=== PATIENT | female | born 1965 | race Caucasian/White ===

== ENCOUNTER → 2024-06-27 | Outpatient (CLI) | payer SELFPAY ==
--- NOTE | 2024-06-27 16:45 | RAD_ITS ---
PROCEDURE: CERV SPINE 4 OR 5 VIEWS REASON FOR EXAM: Segmental and somatic dysfunction of the cervical spine. TECHNIQUE: 6 views of the cervical spine COMPARISON: None. FINDINGS: Cervical vertebral bodies are seen to the C7-T1 level on the sagittal view. Cervical vertebral bodies maintain a normal height. There is straightening of the cervical lordosis with mild reversal. Multilevel degenerative changes are identified which is greatest at C5-C6 with disc space narrowing and endplate spurring as well as mild retrolisthesis. No acute fracture or subluxation is identified. Prevertebral soft tissues are unremarkable. Atlantodental interval is intact. There is right-sided neural foraminal narrowing at C5-C6 and left-sided neural foraminal narrowing from C4-C7. Odontoid process is intact. Lateral masses aligned. RAD/Cerv Spine 4 or 5 Views IMPRESSION: 1. No acute cervical spine fracture. 2. Multilevel degenerative changes greatest at C5-C6. Multilevel neural forami nal narrowing is present. If clinical concern for radiculopathy, MRI is a more sensitive exam. Reading Location: [facility]
== END | disposition home or self-care (01) ==
PROVIDERS: Referring Provider Chiropractor Orthopedic; Visit Provider Chiropractor Orthopedic
DX: M99.01 Segmental and somatic dysfunction of cervical region (principal); M54.2 Cervicalgia
CPT/HCPCS: 72050